=== PATIENT | female | born 1950 | race Caucasian/White ===

== ENCOUNTER → 2016-06-28 | Outpatient (CLI) | payer OTHER ==
[~2016-06-28] MED LIST: APAP500 PO; ATIVAN0.5 MG PO; CALCIUM 500 +1 EAC5 PO; CALCIUM 500+D1 EAC2 PO; CYMBALTA60 MG PO; DIAZEPAM 5 MG5 M1 PO; FOSAMAX 70 MG T70 M1 PO; HYDROCODONE-AP1 EAC6 PO; LODINE XL500 MG PO; MULTIVITAMINS1 EAC7 PO; NAPROSYN500 MG PO; VITAMIN D2000 UNIT PO; ZYRTEC10 M2 PO
== END ==
LOC: CAT 09:13
DX: K76.9 Liver disease, unspecified (principal); D18.00 Hemangioma unspecified site; K76.89 Other specified diseases of liver; R31.9 Hematuria, unspecified; R10.9 Unspecified abdominal pain

== ENCOUNTER → 2017-05-14 | Outpatient (CLI) | payer OTHER | LOC: MRI 13:48 | DX: M19.071 Primary osteoarthritis, right ankle and foot (principal); M79.89 Other specified soft tissue disorders; R26.2 Difficulty in walking, not elsewhere classified ==